=== PATIENT | male | born 1995 | race Caucasian/White ===

== ENCOUNTER 2016-08-09 10:34 | Emergency (ER) | payer SELFPAY ==
[2016-08-09 10:47] VITALS: BP 151/78
[2016-08-09] MEDS ORDERED: Ibuprofen TAB* 400 MG PO ONE (11:43)
--- NOTE | 2016-08-09 11:56 | ED ---
Upper Extremity Pain - History of Current Complaint Chief Complaint: EDExtremityUpper Stated Complaint: NAIL IN FINGER Time Seen by Provider: 08/09/16 10:55 - Allergies/Home Medications Allergies/Adverse Reactions: Allergies Allergy/AdvReac Type Severity Reaction Status Date / Time No Known Drug Allergy Allergy Unknown Unverified 05/02/14 15:21 Reaction Details No Known Food Allergy Allergy Unknown Unverified 05/02/14 15:21 Reaction Details PMH/Surg Hx/FS Hx/Imm Hx - Surgical History Surgery Procedure, Year, and Place: tonsilectomy. Ear tubes Infectious Disease History: No Infectious Disease History: Denies: History Other Infectious Disease, Traveled Outside the [place] in Last 30 Days - Social History Alcohol Use: None Substance Use Type: Reports: None Smoking Status (MU): Never Smoked Tobacco Physical Exam Vital Signs On Initial Exam: Initial Vitals Temp Pulse Resp BP Pulse Ox 98.2 F 85 16 151/78 7 08/09/16 10:44 08/09/16 10:44 08/09/16 10:44 08/09/16 10:44 08/09/16 10:44 Diagnostics - Vital Signs Vital Signs Temp Pulse Resp BP Pulse Ox 08/09/16 10:44 98.2 F 85 16 151/78 7 - Laboratory Lab Statement: Any lab studies that have been ordered have been reviewed, and results considered in the medical decision making process. - Radiology right middle finger Xray Interpretation: Positive (See Comments) - THERE IS AN INTACT NAIL THROUGH THE PALMAR SOFT TISSUES OF THE RIGHT MIDDLE FINGER DISTAL PHALANX WITH NO VISIBLE INVOLVEMENT OF THE UNDERLYING BONE. Radiology Interpretation Completed By: Radiologist Course/Dx - Diagnoses Provider Diagnoses: Puncture wound of finger with foreign body without damage to nail Discharge - Discharge Plan Condition: Stable Disposition: HOME Prescriptions: Cephalexin CAP* [Keflex CAP*] 500 mg PO TID #21 cap Patient Education Materials: Puncture Wound (ED), Soft Tissue Foreign Body (ED) Forms: *Work Release Referrals: Tucker Quinones MD [Primary Care Provider] - Additional Instructions: Take prescribed medications as directed until entire dose is gone. Recommend taking probiotic pills or eating frisian yogurt an hour after taking anitbiotic to help replenish the good bacteria in your system. You may want to take Ibuprofen or Aleve for pain and soreness. Keep dressing on for 48 hours and keep clean and dry. If bleeding returns or does not stop please be sure to be seen by provider. If you develop signs of infection such as redness, swelling, fever/chills and discharge please seek medical attention. Follow up with primary care provider is encouraged.
--- NOTE | 2016-08-09 12:11 | RAD ---
INDICATION: Nail puncture wound to the right middle finger TECHNIQUE: 3 views of the right middle finger were obtained. FINDINGS: An intact nail is seen traversing the palmar aspect soft tissues of the distal phalanx right middle finger. The underlying bones appear to be uninvolved. IMPRESSION: THERE IS AN INTACT NAIL THROUGH THE PALMAR SOFT TISSUES OF THE RIGHT MIDDLE FINGER DISTAL PHALANX WITH NO VISIBLE INVOLVEMENT OF THE UNDERLYING BONE.
[2016-08-09] MEDS ORDERED: Tetan/Diph/Pertus SYR(Tdap)* 0.5 ML SYR(BOOSTRIX) use SYR IM ONE (13:42)
== END 2016-08-09 14:19 | disposition home or self-care (01) ==
LOC: ED 10:34
DX: S61.232A Puncture wound without foreign body of right middle finger without damage to nail, initial encounter (principal); W45.0XXA Nail entering through skin, initial encounter; Y93.89 Activity, other specified; Y92.89 Other specified places as the place of occurrence of the external cause
CPT/HCPCS: 73140; 90715; 99282; A9270-GY

== ENCOUNTER 2018-01-15 13:26 | Emergency (ER) | payer OTHER ==
[2018-01-15 13:39] VITALS: BP 130/72
--- NOTE | 2018-01-15 14:00 | UC ---
Abdominal Pain Male HPI - HPI Summary HPI Summary: NAUSEA AND INTERMITTENT CRAMPY ABDOMINAL PAIN FOR THE PAST DAY AND A HALF. HAD SEVERAL EPISODES OF SOFT STOOL YESTERDAY AND TODAY. SEVERAL EPISODES OF EMESIS YESTERDAY BUT NONE TODAY. FEELS A BIT BETTER THIS MORNING. NO FEVER OR URI SYMPTOMS. NO RECENT TRAVEL OR UNUSUAL/NEW FOODS. - History of Current Complaint Chief Complaint: UCGI Stated Complaint: NAUSEA VOMITING DIARRHEA Time Seen by Provider: 01/15/18 13:46 Hx Obtained From: Patient Onset/Duration: Gradual Onset, Lasting Days, Still Present Severity Initially: Moderate Severity Currently: Moderate Pain Intensity: 0 Pain Scale Used: 0-10 Numeric Location: Diffuse Radiates: No Character: Cramping Aggravating Factor(s): Nothing Associated Signs And Symptoms: Positive: Decreased Appetite, Nausea, Vomiting, Diarrhea. Negative: Diaphoresis, Fever, Back Pain, Constipation, Blood in Stool , Urinary Symptoms - Allergies/Home Medications Allergies/Adverse Reactions: Allergies Allergy/AdvReac Type Severity Reaction Status Date / Time No Known Allergies Allergy Verified 01/15/18 13:39 PMH/Surg Hx/FS Hx/Imm Hx Respiratory History: Asthma - Surgical History Surgical History: Yes Surgery Procedure, Year, and Place: tonsilectomy. Ear tubes - Family History Known Family History: Positive: None Negative: Hypertension - Social History Alcohol Use: Rare Substance Use Type: None Smoking Status (MU): Never Smoked Tobacco - Immunization History Vaccination Up to Date: Yes Review of Systems Constitutional: Negative Respiratory: Negative Cardiovascular: Negative Gastrointestinal: Abdominal Pain, Vomiting, Diarrhea, Nausea Genitourinary: Negative All Other Systems Reviewed And Are Negative: Yes Physical Exam Triage Information Reviewed: Yes Appearance: Well-Appearing, No Pain Distress, Well-Nourished Vital Signs: Initial Vital Signs Temp 98.6 F 01/15/18 13:37 Pulse 82 01/15/18 13:37 Resp 18 01/15/18 13:37 BP 130/72 01/15/18 13:37 Pulse Ox 100 01/15/18 13:37 Vital Signs Reviewed: Yes Eyes: Positive: Conjunctiva Clear ENT: Positive: Hearing grossly normal, Pharynx normal Neck: Positive: Supple Respiratory: Positive: No respiratory distress, No accessory muscle use Cardiovascular: Positive: Pulses Normal Abdomen Description: Positive: Nontender, Soft. Negative: CVA Tenderness (R), CVA Tenderness (L), Distended, Guarding Musculoskeletal: Positive: No Edema Neurological: Positive: Alert Psychological: Positive: Age Appropriate Behavior Skin: Negative: rashes Abd Pain Male Course/Dx - Differential Dx/Clinical Impression Provider Diagnoses: ACUTE GASTROENTERITIS Discharge - Sign-Out/Discharge Documenting (check all that apply): Patient Departure All imaging exams completed and their final reports reviewed: No Studies - Discharge Plan Condition: Stable Disposition: HOME Prescriptions: Ondansetron ODT TAB* [Zofran Odt TAB*] 4 mg PO Q6H PRN #20 tab.odt PRN Reason: Nausea/Vomiting Patient Education Materials: Gastroenteritis (ED) Forms: *Work Release Referrals: Faith Maravilla MD [Primary Care Provider] - If Needed Additional Instructions: GASTROENTERITIS: You have gastroenteritis ("intestinal flu"). This disease is usually caused by a virus. There is no specific treatment. The disease will end by itself. For now, the main danger is dehydration. Give clear liquids. Examples include Pedialyte, Gatorade, clear broth, juices, flat sodas, and jello water. Medications may be prescribed by the physician for special cases. Once tolerated, the clear liquid diet may be supplemented with rice, cereal, toast, applesauce, or bananas. Call the physician or go to the hospital if vomiting increases or blood appears in the bowel movement or vomitus; if you fail to improve, or if signs of dehydration occur (tongue and mouth become dry, lethargy). ENSURE ADEQUATE HYDRATION. CLEAR LIQUIDS, BLAND DIET. AVOID CAFFEINE, DAIRY, GREASY, SPICY FOODS. ONCE YOU ARE TOLERATING CLEAR LIQUIDS YOU CAN ADVANCE TO SIMPLE, BLAND FOODS. - Billing Disposition and Condition Condition: STABLE Disposition: Home
== END 2018-01-15 14:00 | disposition home or self-care (01) ==
LOC: UCEAST 13:26
DX: K52.9 Noninfective gastroenteritis and colitis, unspecified (principal); J45.909 Unspecified asthma, uncomplicated
CPT/HCPCS: 99212; G0463

== ENCOUNTER 2018-09-11 13:35 | Emergency (ER) | payer BC, OTHER ==
--- NOTE | 2018-09-11 13:44 | UC ---
Abdominal Pain Male HPI - HPI Summary HPI Summary: 22 yo male presents with diarrhea. He tells me that on 09/08 he had Easter dinner with family. On 09/09 he had one episode of vomiting and 5-7 episodes of loose stool and diarrhea. He did not eat anything that day. On 09/10 he felt much better and had a normal diet, but later that day had an episode of diarrhea. Today he has eaten toast and has had two episodes of diarrhea. No more vomiting. Denies fever, abdominal pain, dysuria. No blood in stool. - History of Current Complaint Stated Complaint: STOMACH BUG Time Seen by Provider: 09/11/18 13:44 Hx Obtained From: Patient Onset/Duration: Sudden Onset Severity Currently: None - Allergies/Home Medications Allergies/Adverse Reactions: Allergies Allergy/AdvReac Type Severity Reaction Status Date / Time No Known Allergies Allergy Verified 01/15/18 13:39 Home Medications: Home Medications LevoCETirizine TAB (NF) [Xyzal TAB (NF)] 5 mg PO DAILY 09/11/18 [History Confirmed 09/11/18] PMH/Surg Hx/FS Hx/Imm Hx - Additional Past Medical History Additional PMH: Seasonal allergies - Surgical History Surgical History: Yes Surgery Procedure, Year, and Place: tonsilectomy. Ear tubes - Family History Known Family History: Positive: None Negative: Hypertension - Social History Lives: With Family Alcohol Use: Rare Substance Use Type: None Smoking Status (MU): Never Smoked Tobacco - Immunization History Vaccination Up to Date: Yes Review of Systems All Other Systems Reviewed And Are Negative: Yes Constitutional: Positive: Negative Skin: Positive: Negative Respiratory: Positive: Negative Cardiovascular: Positive: Negative Gastrointestinal: Positive: Vomiting, Diarrhea Genitourinary: Positive: Negative Neurovascular: Positive: Negative Neurological: Positive: Negative Psychological: Positive: Negative Physical Exam - Summary Physical Exam Summary: GENERAL: NAD. WDWN. No pain distress. SKIN: No rashes, sores, lesions, or open wounds. NECK: Supple. Nontender. No lymphadenopathy. CHEST: CTAB. No r/r/w. No accessory muscle use. Breathing comfortably and in no distress. CV: RRR. Without m/r/g. Pulses intact. Cap refill <2seconds ABDOMEN: Soft. NTTP. No distention or guarding. No CVA tenderness. Bowel sounds present NEURO: Alert. PSYCH: Age appropriate behavior. Triage Information Reviewed: Yes Vital Signs: Vital Signs: Temp Pulse Resp BP Pulse Ox 99.6 F 82 16 153/85 100 09/11/18 13:52 09/11/18 13:52 09/11/18 13:52 09/11/18 13:52 09/11/18 13:52 Vital Signs Reviewed: Yes Abd Pain Male Course/Dx - Course Course Of Treatment: Suspect gastroenteritis. Pt is tolerating po and is no longer vomiting. Will have him try immodium and align OTC for his diarrhea, which I suspect is due to inflammation at this time. F/u if symptoms do not improve - Differential Dx/Clinical Impression Provider Diagnosis: Loose stools Discharge - Sign-Out/Discharge Documenting (check all that apply): Patient Departure All imaging exams completed and their final reports reviewed: No Studies - Discharge Plan Condition: Stable Disposition: HOME Prescriptions: Bifidobacterium Infantis [Align] 4 mg PO DAILY #14 cap Patient Education Materials: Gastroenteritis (DC) Forms: *Work Release Referrals: Faith Maravilla MD [Primary Care Provider] - Additional Instructions: If you develop a fever, shortness of breath, chest pain, new or worsening symptoms - please call your PCP or go to the ED. Advance your diet as tolerated starting with a bland diet of bananas, rice, applesauce, and toast May try taking Immodium [id number] as directed to slow your diarrhea. - Billing Disposition and Condition Condition: STABLE Disposition: Home
[2018-09-11 13:59] VITALS: BP 153/85
== END 2018-09-11 14:08 | disposition home or self-care (01) ==
LOC: UCEAST 13:35
DX: R19.7 Diarrhea, unspecified (principal); J30.2 Other seasonal allergic rhinitis
CPT/HCPCS: 99212; G0463